=== PATIENT | female | born 2000 | race African-American/Black ===

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

== ENCOUNTER 2020-05-30 21:48 | Emergency (ER) | payer OTHER ==
[~2020-05-30] VITALS: Ht 154.9 cm; Wt 100.0 kg
[2020-05-30] MEDS ORDERED: IV NORMAL SALINE 1,000ML 1,000 ML IV ONE (22:00)
--- NOTE | 2020-05-30 22:00 | PHYS DOC ---
Past History Past Medical History: No Pertinent History, Other Past Surgical History: Other Smoking: Non-smoker Alcohol Use: None Drug Use: None General Adult EDM: Chief Complaint: SORE THROAT HPI: HPI: Patient is a 19 year old female who presents for evaluation of sore throat, shortness of air has been progressing for the past 2 days. Patient has a mild diffuse headache but no significant neck pain. Patient has pain with swallowing but is not complaining of drooling. Patient was tachycardic in triage and is running a fever. Patient is not toxic appearing however. Patient has no known exposure to COVID although she has been to work recently Review of Systems: Review of Systems: Constitutional: has fever but no chills Eyes: Denies change in visual acuity HENT: has nasal congestion and moderate sore throat Respiratory: mild cough and shortness of breath Cardiovascular: has chest pain but no edema GI: Denies abdominal pain, nausea, vomiting, bloody stools or diarrhea : Denies dysuria Musculoskeletal: Denies back pain or joint pain Integument: Denies rash Neurologic: mild diffuse headache but no focal weakness or sensory changes Endocrine: Denies polyuria or polydipsia Lymphatic: Denies swollen glands Psychiatric: Denies depression or anxiety Heart Score: Risk Factors: Risk Factors: DM, Current or recent (<one month) smoker, HTN, HLP, family history of CAD, obesity. Risk Scores: Score 0 - 3: 2.5% MACE over next 6 weeks - Discharge Home Score 4 - 6: 20.3% MACE over next 6 weeks - Admit for Clinical Observation Score 7 - 10: 72.7% MACE over next 6 weeks - Early Invasive Strategies Allergies: Allergies: Allergies Coded Allergies Type Severity Reaction Last Updated Verified No Known Drug Allergies 09/25/15 No Physical Exam: PE: Constitutional: Well developed, well nourished, mild acute distress, non-toxic appearance. [] HENT: Normocephalic, atraumatic, bilateral external ears normal, oropharynx moist, no oral exudates, nose normal, mild bilateral tympanic membrane erythema, bilateral enlarged tonsils with exudate present [] Eyes: PERRL EOMI, conjunctiva normal, no discharge. [] Neck: Normal range of motion, no tenderness, supple, no stridor. [] Cardiovascular:Heart rate tachy regular rhythm, no murmur [] Lungs & Thorax: Bilateral breath sounds clear to auscultation [] Abdomen: Bowel sounds normal, soft, no tenderness, no masses, no pulsatile masses. [] Skin: Warm, dry, no erythema, no rash. [] Back: No tenderness. [] Extremities: No tenderness, no cyanosis, no clubbing, ROM intact, no edema. [] Neurologic: Alert and oriented, normal motor function, normal sensory function, no focal deficits noted. [] Psychologic: Affect normal, judgement normal, mood normal. [] Current Patient Data: Labs: Laboratory Tests Test 05/30/20 22:35 05/30/20 23:00 Group A Streptococcus Rapid Negative White Blood Count 8.2 x10^3/uL Red Blood Count 4.07 x10^6/uL Hemoglobin 12.4 g/dL Hematocrit 36.8 % Mean Corpuscular Volume 91 fL Mean Corpuscular Hemoglobin 31 pg Mean Corpuscular Hemoglobin Concent 34 g/dL Red Cell Distribution Width 11.7 % Platelet Count 303 x10^3/uL Neutrophils (%) (Auto) 68 % Lymphocytes (%) (Auto) 15 % Monocytes (%) (Auto) 17 % Eosinophils (%) (Auto) 0 % Basophils (%) (Auto) 0 % Neutrophils # (Auto) 5.6 x10^3uL Lymphocytes # (Auto) 1.2 x10^3/uL Monocytes # (Auto) 1.4 x10^3/uL Eosinophils # (Auto) 0.0 x10^3/uL Basophils # (Auto) 0.0 x10^3/uL Sodium Level 137 mmol/L Potassium Level 3.6 mmol/L Chloride Level 103 mmol/L Carbon Dioxide Level 28 mmol/L Anion Gap 6 Blood Urea Nitrogen 8 mg/dL Creatinine 0.9 mg/dL Estimated GFR (Cockcroft-Gault) 97.6 BUN/Creatinine Ratio 9 Glucose Level 136 mg/dL Calcium Level 8.6 mg/dL Total Bilirubin 0.5 mg/dL Aspartate Amino Transf (AST/SGOT) 13 U/L Alanine Aminotransferase (ALT/SGPT) 14 U/L Alkaline Phosphatase 70 U/L Total Protein 7.7 g/dL Albumin 3.1 g/dL Albumin/Globulin Ratio 0.7 Serum Test, Qualitative Negative Heterophil Agglutinins Negative Current Medications Medications (Trade) Dose Ordered Sig/Monica Route PRN Reason Start Time Stop Time Status Last Admin Dose Admin Sodium Chloride 1,000 ml @ 1,000 mls/hr 1X ONCE IV 05/30/20 22:00 05/30/20 22:59 DC 05/30/20 23:00 Acetaminophen (Tylenol) 1,000 mg 1X ONCE PO 05/30/20 22:15 05/30/20 22:16 DC 05/30/20 22:40 EKG: EKG: Sinus tachycardia rate 115, leftward axis, otherwise unremarkable EKG, not STEMI read at 2220 [] Radiology/Procedures: Radiology/Procedures: CXR: no acute findings, no obvious infiltrates[] Course & Med Decision Making: Course & Med Decision Making Pertinent Labs and Imaging studies reviewed. (See chart for details) [] Dragon Disclaimer: Dragon Disclaimer: This electronic medical record was generated, in whole or in part, using a voice recognition dictation system. 0100 stable, feeling better at this time. Chest x-ray did not show evidence of pneumonia. Physical exam shows patient has enlarged tonsils with exudates present. White blood cell count was normal. Patient given dose of Solu-Medrol and augmentin She will receive prescription for Keflex and Medrol Dosepak. COVID swab results are pending. It was recommended patient do quarantine until results are known or she is symptom-free which ever is longer. Departure Departure: Impression: Primary Impression: Exudative tonsillitis Additional Impressions: Dyspnea Qualified Codes: R06.00 - Dyspnea, unspecified Person under investigation for COVID-19 Disposition: HOME/RESIDENCE PRIOR TO ADM Condition: STABLE Referrals: CLAUDIA HIGGINS MD (PCP) Patient Instructions: Shortness of Breath, [id number], Tonsillitis Additional Instructions: Drink plenty fluids, rest, take medication as directed. This includes steroids and an antibiotic, return if worsen You have been tested for or diagnosed with COVID-19. It is an infection caused by a new type of coronavirus. COVID-19 will cause cold-like or mild flu symptoms in most. It can cause more severe symptoms like problems breathing in some. There is no treatment for COVID-19. The body will clear the infection over time. Self-care will help to ease discomfort. Steps to Take: Self-Care Rest as needed. Healthy habits may help you feel better. Steps include: Choose healthy foods including fruits and vegetables. Drink water throughout the day. Get plenty of sleep each night. If you smoke, try to quit. It may ease breathing. Avoid alcohol. Keep Others Healthy The virus can spread to others. Droplets are released every time you sneeze or cough. The droplets can get into the mouth, nose, or eyes of people near you and lead to infection. To lower the chances of spreading COVID-19 to others: Stay at home until your doctor has said it is safe to leave. If you tested positive this will mean staying isolated until both of the following are true: At least 7 days have passed since the start of illness. You are free of fever for at least 72 hours without the use of medicine. During this time: - Avoid public areas, events, or transportation. Do not return to work or school until your doctor has said it is safe to do so. - Call ahead if you need to go to a medical center. Let them know you may have COVID-19. It will help them guide you where to go. They may also ask you to wear a facemask when you come to the office. - If you call for emergency medical services, let them know you may have COVID- 19. While at home: - Try to avoid close contact with others. Stay about 6 feet away. - If possible, spend most of your time in a separate room from others. - Use a face mask if you will be in close contact with others such as sharing a room or vehicle. - Have someone wipe down common surfaces in the home. Use household design sales consultant every day on areas like doorknobs, counters, or sinks. - Cough or sneeze into a tissue. Throw the tissue away right after use. If a tissue is not available, cough or sneeze into your elbow. - Wash your hands often. Wash them after sneezing or coughing. Use soap and water and wash for at least 20 seconds. Alcohol based hand house cleaner can be used if soap and water is not available. - Do not prepare food for others. Avoid sharing personal items like forks, spoons, or toothbrushes. - Avoid close contact with pets while you are sick. There is no evidence of the virus passing to pets. This is a safety step until more is known about this virus. Isolation can be frustrating. Social interaction can help. Keep in touch with friends and family through phone and tech options. You can still interact with others in your home, just keep a safe distance of about 6 feet. Follow-up: Your doctors office will check in with you to see if there are any changes in your health. You may be asked to keep track of symptoms to share with them. They will also let you know when you are clear to be in public again. Problems to Look Out For: Contact your doctor if your recovery is not going as you expect. Get emergency care if you have problems such as: - Trouble breathing - Nonstop chest pain or pressure - Changes in awareness, confusion, or problems waking - Lips or face have bluish color - Worsening of symptoms If you think you have an emergency, call for emergency medical services right away. As taken from [facility] Methylprednisolone (MEDROL) 4 Mg Tab.ds.pk 1 PKG PO UD for enlarged tonsils, #1 PKG Prov: LEYLA LINN DO 05/31/20 Amoxicillin/Potassium Clav (AUGMENTIN 500-125 TABLET) 1 Each Tablet 1 TAB PO TID for tonsillitis for 7 Days, #21 TAB 0 Refills Prov: LEYLA LINN DO 05/31/20 Justification of Admission: Justification of Admission: Justification of Admission Dx: N/A COVID-19 Assessment COVID-19 Patient Risks: Age 65 or older: No Sign of co-morbidity: No Exp to person + for COVID: No Exp to PUI: No Travel from affected area: No Lower respiratory symptoms: Yes Fever: Yes Other: No PPE Use: Full PPE with N95 mask or PAPR: Yes LEYLA LINN DO May 30, 2020 22:00
[2020-05-30] MEDS ORDERED: ACETAMINOPHEN 500 MG TABLET PO ONE (22:15)
[2020-05-30 23:35] LABS: BASO % 0 % (0-3); EOS % 0 % (0-3); HEMATOCRIT 36.8 % (36.0-47.0); HEMOGLOBIN 12.4 g/dL (12.0-15.5); LYMPH # 1.2 x10^3/uL (1.0-4.8); LYMPH % 15 % (24-48); MEAN CORPUSCULAR HEMOGLOBIN 31 pg (25-35); MEAN CORPUSCULAR HGB CONC 34 g/dL (31-37); MEAN CORPUSCULAR VOLUME 91 fL (79-100); MONO # 1.4 x10^3/uL (0.0-1.1); MONO % 17 % (0-9); NEUT # 5.6 x10^3uL (1.8-7.7); NEUT % 68 % (31-73); PLATELET COUNT 303 x10^3/uL (140-400); RED BLOOD COUNT 4.07 x10^6/uL (3.50-5.40); RED CELL DISTRIBUTION WIDTH 11.7 % (11.5-14.5); WHITE BLOOD COUNT 8.2 x10^3/uL (4.0-11.0)
[2020-05-30 23:36] LABS: CALCIUM 8.6 mg/dL (8.5-10.1); CREATININE 0.9 mg/dL (0.6-1.0); GFR 97.6; POTASSIUM 3.6 mmol/L (3.5-5.1)
[2020-05-30 23:41] LABS: ALBUMIN 3.1 g/dL (3.4-5.0); ALBUMIN/GLOBULIN RATIO 0.7 (1.0-1.7); TOTAL BILIRUBIN 0.5 mg/dL (0.2-1.0); TOTAL PROTEIN 7.7 g/dL (6.4-8.2)
[2020-05-30 23:43] LABS: PREG TEST PT QUAL NEGATIVE (NEG)
[2020-05-30 23:46] LABS: MONONUCLEOSIS PATIENT NEGATIVE (NEGATIVE)
--- NOTE | 2020-05-31 00:53 | EKG ---
[address] [address] Test Date: 2020-05-30 Test Time: 22:14:02 Pat Name: ROHAN GIORDANO Department: Room: Gender: F Intelligence Agent: : 2000 Requested By: LEYLA LINN Order Number: [id number] Reading MD: Measurements Intervals [place] Rate: 115 P: 59 NM: 150 QRS: 26 QRSD: 70 T: 32 QT: 302 QTc: 419 Interpretive Statements SINUS TACHYCARDIA OTHERWISE NORMAL ECG RI6.02 No previous ECG available for comparison
[2020-05-31 01:10] VITALS: BP 129/61
[2020-05-31] MEDS ORDERED: METH4TAB2 PO (01:19)
[2020-05-31] MEDS ORDERED: AMOX1TAB58 PO (01:19)
[2020-05-31] MEDS ORDERED: IV NORMAL SALINE 50ML 50 ML ONE (01:21)
[2020-05-31] MEDS ORDERED: cefTRIAXone SODIUM 1 GM VIAL ONE (01:22)
[2020-05-31] MEDS ORDERED: methylPREDNISolone SOD SUCC PF 125 MG/2 ML VIAL. IV ONE (01:30)
--- NOTE | 2020-05-31 02:19 | RAD ---
INDICATION: Reason: short of air, fever / Spl. Instructions: / History: COMPARISON: None. FINDINGS: Single view of chest obtained. Cardiac silhouette is mildly prominent but likely exaggerated by portable technique. Mild haziness at the lung bases. No gross osseous destructive lesion. IMPRESSION: * Minimal haziness at the lung bases could be from overlap of structures or atelectasis. Infiltrate would be considered less likely. Electronically signed by: Sonido Levine MD (05/31/2020 2:16 AM) [id number]
--- NOTE | 2020-06-03 10:51 | NUR ---
IP: notified patient of COVID test result.
== END 2020-05-31 02:11 | disposition home or self-care (01) ==
LOC: ER 21:48
DX: J03.90 Acute tonsillitis, unspecified (principal); Z20.828 Contact with and (suspected) exposure to other viral communicable diseases
CPT/HCPCS: 36415; 71045; 80053; 84703; 85025; 86308; 87070; 87880; 93005; 96361; 96365; 96375; 99285; J0696; J2930; J7030; U0003

== ENCOUNTER 2021-02-12 18:41 | Emergency (ER) | payer OTHER ==
[~2021-02-12] VITALS: Ht 154.9 cm; Wt 100.6 kg
[~2021-02-12 18:41] MED LIST: AMOX1TAB58 PO; METH4TAB2 PO
[2021-02-12 19:32] VITALS: BP 149/86
--- NOTE | 2021-02-12 19:49 | PHYS DOC ---
Past History Past Medical History: No Pertinent History, Other (PIETRO HERNANDEZ APRN) Past Surgical History: Other Additional Past Surgical Histo: wisdom teeth (PIETRO HERNANDEZ APRN) Smoking: Non-smoker Alcohol Use: None Drug Use: None (PIETRO HERNANDEZ APRN) General Adult EDM: Chief Complaint: OTHER COMPLAINTS HPI: HPI: Patient is a 20-year-old female who presents with swollen lymph nodes, sore throat. Patient states that symptoms started yesterday. Patient denies a cough, fever. Patient states "I also think I have a yeast infection". Patient reports that she has a white discharge, with fishy odor. Patient had unprotected sex in November. Last menstrual period was December. Denies . Patient reports she has been taking Advil at home for discomfort which has helped. Denies health history. (PIETRO HERNANDEZ APRN) Review of Systems: Review of Systems: Constitutional: Denies fever or chills Eyes: Denies change in visual acuity HENT: Denies nasal congestion, reports sore throat Respiratory: Denies cough or shortness of breath Cardiovascular: Denies chest pain or edema GI: Denies abdominal pain, nausea, vomiting, bloody stools or diarrhea : Denies dysuria Musculoskeletal: Denies back pain or joint pain Integument: Denies rash Neurologic: Denies headache, focal weakness or sensory changes Endocrine: Denies polyuria or polydipsia Lymphatic: Swollen cervical lymph nodes Psychiatric: Denies depression or anxiety Vaginal: Reports white discharge, fishy odor (PIETRO HERNANDEZ APRN) Allergies: Allergies: Allergies Coded Allergies Type Severity Reaction Last Updated Verified No Known Drug Allergies 09/25/15 No (PIETRO HERNANDEZ APRN) Physical Exam: PE: Constitutional: Well developed, well nourished, no acute distress, non-toxic appearance. [] HENT: atraumatic, bilateral external ears normal, oropharynx moist, no oral exudates, Eyes: PERRLA, conjunctiva normal, no discharge. [] Neck: Normal range of motion, tendernesscervical lymph nodes Cardiovascular:Heart rate regular rhythm, no murmur [] Lungs & Thorax: Bilateral breath sounds clear to auscultation [] Abdomen: Bowel sounds normal, soft, no tenderness, no masses, no pulsatile masses. [] Skin: Warm, dry, no erythema, no rash. [] Back: No tenderness, no CVA tenderness. [] Extremities: No tenderness, no cyanosis, no clubbing, ROM intact, no edema. [] Neurologic: Alert and oriented X 3, normal motor function, normal sensory function, no focal deficits noted. [] Psychologic: Affect normal, judgement normal, mood normal. [] (PIETRO HERNANDEZ APRN) EKG: EKG: [] (PIETRO HERNANDEZ APRN) Radiology/Procedures: Radiology/Procedures: [] (PIETRO HERNANDEZ APRN) Heart Score: C/O Chest Pain: No Risk Factors: Risk Factors: DM, Current or recent (<one month) smoker, HTN, HLP, family history of CAD, obesity. Risk Scores: Score 0 - 3: 2.5% MACE over next 6 weeks - Discharge Home Score 4 - 6: 20.3% MACE over next 6 weeks - Admit for Clinical Observation Score 7 - 10: 72.7% MACE over next 6 weeks - Early Invasive Strategies (PIETRO HERNANDEZ APRN) Course & Med Decision Making: Course & Med Decision Making Pertinent Labs and Imaging studies reviewed. (See chart for details) [] Patient is being seen for sore throat, swollen lymph nodes and vaginal discharge. Patient states that she has white discharge, and fishy odor. Patient reports unprotected sex and in November. Patient denies urinary symptoms. Rapid strep was negative. Patient self swabbed for wet prep. Patient care transferred to Dr. Raphael (PIETRO HERNANDEZ APRN) Donny Disclaimer: Donny Disclaimer: This electronic medical record was generated, in whole or in part, using a voice recognition dictation system. (PIETRO HERNANDEZ APRN) Departure Departure: Impression: Primary Impression: Sore throat Disposition: HOME / SELF CARE / HOMELESS Referrals: CLAUDIA HIGGINS MD (PCP) Scripts Metronidazole (METROGEL-VAGINAL) 70 Gm Gel.w.appl 1 APPFUL VG QHS for bv for 5 Days, #70 GM 0 Refills Prov: LUIS LOUISE MD 02/12/21 Attending Signature Attending Signature I have participated in the care of this patient and I have reviewed and agree with all pertinent clinical information above including history, exam, and recommendations. (LUIS LOUISE MD) PIETRO HERNANDEZ APRN Feb 12, 2021 19:49 LUIS LOUISE MD Feb 13, 2021 00:58
[2021-02-12] MEDS ORDERED: METR70GE14 VG (21:27)
== END 2021-02-12 21:34 | disposition home or self-care (01) ==
LOC: ER 18:41
DX: J02.9 Acute pharyngitis, unspecified (principal); R59.9 Enlarged lymph nodes, unspecified
CPT/HCPCS: 87070; 87880; 99283; Q0111

== ENCOUNTER 2021-02-15 13:06 | Emergency (ER) | payer OTHER ==
[~2021-02-15] VITALS: Ht 154.9 cm; Wt 100.6 kg
[~2021-02-15 13:06] MED LIST changes: +METR70GE14 VG
--- NOTE | 2021-02-15 13:35 | PHYS DOC ---
Past History Past Medical History: No Pertinent History, Other Past Surgical History: Other Additional Past Surgical Histo: wisdom teeth Smoking: Non-smoker Alcohol Use: None Drug Use: None General Adult EDM: Chief Complaint: Neck Pain HPI: HPI: Patient is a 20-year-old female who presents with swelling to the right side of her neck. Patient does report right ear pain, right-sided throat pain. Patient was seen here earlier in the week and tested negative for strep. Patient denies fever, cough. Patient states "it is a lot more swollen than when I was here before". Patient is able to manage secretions. Denies shortness of breath. Denies trouble swallowing. Patient denies any mouth sores. Review of Systems: Review of Systems: Constitutional: Denies fever or chills Eyes: Denies change in visual acuity HENT: Denies nasal congestion, reports sore throat Respiratory: Denies cough or shortness of breath Cardiovascular: Denies chest pain or edema GI: Denies abdominal pain, nausea, vomiting, bloody stools or diarrhea : Denies dysuria Musculoskeletal: Denies back pain or joint pain Integument: Denies rash Neurologic: Denies headache, focal weakness or sensory changes Endocrine: Denies polyuria or polydipsia Lymphatic: Reports right-sided, cervical, swollen glands Psychiatric: Denies depression or anxiety Allergies: Allergies: Allergies Coded Allergies Type Severity Reaction Last Updated Verified No Known Drug Allergies 09/25/15 No Physical Exam: PE: Constitutional: Well developed, no acute distress, non-toxic appearance. HENT: Normocephalic, atraumatic, bilateral external ears normal, oropharynx mo ist, no oral exudates Eyes: PERRLA, conjunctiva normal, no discharge. Neck: Normal range of motion, right-sided neck tenderness, swelling. Cardiovascular:Heart rate regular rhythm, no murmur Lungs & Thorax: Bilateral breath sounds clear to auscultation Abdomen: Bowel sounds normal, soft, no tenderness, no masses Skin: Warm, dry, no erythema, no rash. Back: No tenderness, no CVA tenderness. Extremities: No tenderness, no cyanosis, no clubbing, ROM intact, no edema. Neurologic: Alert and oriented X 3, normal motor function, normal sensory function, no focal deficits noted Psychologic: Affect normal, judgement normal, mood normal. EKG: EKG: [] Radiology/Procedures: Radiology/Procedures: []EXAM: CT NECK SOFT TISSUES WITH CONTRAST. HISTORY: Neck swelling. TECHNIQUE: Computed tomography of the neck soft tissues was performed after the intravenous administration of iodinated contrast. One or more of the following individualized dose reduction techniques were utilized for this examination: 1. Automated exposure control. 2. Adjustment of the mA and/or kV according to patient size. 3. Use of iterative reconstruction technique. COMPARISON: None. FINDINGS: Images of the lung apices reveal no acute abnormality. Bone windows reveal no suspicious lesions. The parotid glands and submandibular glands are unremarkable. The thyroid gland reveals no focal lesions. The pharyngeal tonsils are moderately enlarged, narrowing the oropharyngeal airway. There is mild soft tissue swelling in the right submandibular and submental region. There is no drainable soft tissue collection. Cervical lymph nodes are enlarged bilaterally. These measure up to 3.3 x 2.0 cm in the left jugulodigastric station. One right jugulodigastric lymph node measuring 2.1 x 1.8 cm and enhances relatively weakly suggesting early necrosis. Posterior triangle nodes are enlarged to a lesser degree. One prominent left supraclavicular node measures 13 x 6 mm. IMPRESSION: 1. Mild soft tissue swelling within the submental and right submandibular region without a drainable collection. 2. Enlarged bilateral cervical lymph nodes with suggestion of early necrosis on the right. These are most likely reactive. Correlate with other clinical data. There are minimal percutaneous ultrasound guided biopsy if there is persistent concern. Electronically signed by: Jose Chaudhry MD (02/15/2021 2:32 PM) [facility] Heart Score: C/O Chest Pain: No Risk Factors: Risk Factors: DM, Current or recent (<one month) smoker, HTN, HLP, family history of CAD, obesity. Risk Scores: Score 0 - 3: 2.5% MACE over next 6 weeks - Discharge Home Score 4 - 6: 20.3% MACE over next 6 weeks - Admit for Clinical Observation Score 7 - 10: 72.7% MACE over next 6 weeks - Early Invasive Strategies Course & Med Decision Making: Course & Med Decision Making Pertinent Labs and Imaging studies reviewed. (See chart for details) [] 20-year-old female presents with right-sided cervical swelling and tenderness. Patient was seen here earlier in the week for sore throat, swollen lymph nodes. Patient was tested for strep throat, which was negative. Patient is reporting that swelling has gotten worse. Pain in her right ear, right-sided throat. No edema or exudates seen on tonsils. Patient denies fevers or trouble swallowing. Patient is managing her own secretions. Tested patient for mono, which was negative. All other labs are unremarkable. CT of neck shows mild soft tissue swelling. Patient was likely has bacterial pharyngitis. Starting patient on Augmentin and sending home with a Medrol Dosepak. Patient needs to follow-up with her PCP if symptoms persist. Gave patient a referral for ENT for patient to follow-up . Explained to patient to return to emergency room with worsening symptoms or concerns . Patient agrees with this plan. Donny Disclaimer: Donny Disclaimer: This electronic medical record was generated, in whole or in part, using a voice recognition dictation system. Departure Departure: Impression: Primary Impression: Bacterial pharyngitis Disposition: HOME / SELF CARE / HOMELESS Condition: STABLE Referrals: CLAUDIA HIGGINS MD (PCP) Patient Instructions: Viral and Bacterial Pharyngitis, [id number] Additional Instructions: You were seen in the emergency room today for swelling to lymph nodes on your right, right-sided ear pain and throat pain. We tested you for mono, which was negative. All of your other labs were unremarkable. The CT of your neck was negative for acute abnormalities. You most likely have bacterial pharyngitis. I am sending you home with a prescription for Augmentin and also a Medrol Dosepak to help with swelling. You can also take ibuprofen and Tylenol for discomfort. If you have worsening symptoms or concerns please return to the emergency room. EMERGENCY DEPARTMENT GENERAL DISCHARGE INSTRUCTIONS Thank you for coming to [facility] (ED) today and trusting us with you care. We trust that you had a positivie experience in our Emergency Department. If you wish to speak to the department management, you may call the director at [phone]. YOUR FOLLOW UP INSTRUCTIONS ARE FOLLOWS: 1. Do you have a private Doctor? If you do not have a private doctor, please ask for a resource list of physicians or clinics that may be able to assist you with follow up care. 2. The Emergency Physician has interpreted your x-rays. The X-Ray specialist will also review them. If there is a change in the findings, you will be notified in 48 hours when at all possible. 3. A lab test or culture has been done, your results will be reviewed and you will be notified if you need a change in treatment. ADDITIONAL INSTRUCTIONS AND INFORMATION: 1. Your care today has been supervised by a physician who is specially trained in emergency care. Many problems require more than one evaluation for a complete diagnosis and treatment. We recommend that you schedule your follow up appointment as recommended to ensure complete treatment of you illness or injury. If you are unable to obtain follow up care and continue to have a problem, or if your condition worsens, we recommend that you return to the ED. 2. We are not able to safely determine your condition over the phone nor are we able to give sound medical advice over the phone. For these safety reasons, if you call for medical advice we will ask you to come to the ED for further evaluation. 3. If you have any questions regarding these discharge instructions please call the ED at [phone]. SAFETY INFORMATION: In the interest of safety, wellness, and injury prevention; we encourage you to wear your sealbelt, if you smoke; quite smoking, and we encourage family to use a protective helmet for bicycling and other sporting events that present an increased risk for head injury. IF YOUR SYMPTOMS WORSEN OR NEW SYMPTOMS DEVELOP, OR YOU HAVE CONCERNS ABOUT YOUR CONDITION; OR IF YOUR CONDITION WORSENS WHILE YOU ARE WAITING FOR YOUR FOLLOW UP APPOINTMENT; EITHER CONTACT YOUR PRIMARY CARE DOCTOR, THE PHYSICIAN WHOSE NAME AND NUMBER YOU WERE GIVEN, OR RETURN TO THE ED IMMEDIATELY. Scripts Methylprednisolone (MEDROL) 4 Mg Tab.ds.pk 1 PKG PO UD for inflammation for 6 Days, #1 PKG 0 Refills Prov: PIETRO HERNANDEZ APRN 02/15/21 Amoxicillin/Potassium Clav (AUGMENTIN 875-125 TABLET) 1 Each Tablet 1 TAB PO BID for pharangitis for 7 Days, #14 TAB 0 Refills Prov: PIETRO HERNANDEZ APRN 02/15/21 PIETRO HERNANDEZ APRN Feb 15, 2021 13:35
[2021-02-15 13:40] VITALS: BP 13/82
[2021-02-15 13:55] LABS: BASO % 1 % (0-3); EOS # 0.1 x10^3/uL (0.0-0.7); EOS % 1 % (0-3); HEMATOCRIT 39.1 % (36.0-47.0); HEMOGLOBIN 13.3 g/dL (12.0-15.5); LYMPH # 1.6 x10^3/uL (1.0-4.8); LYMPH % 24 % (24-48); MEAN CORPUSCULAR HEMOGLOBIN 29 pg (25-35); MEAN CORPUSCULAR HGB CONC 34 g/dL (31-37); MEAN CORPUSCULAR VOLUME 86 fL (79-100); MONO # 0.8 x10^3/uL (0.0-1.1); MONO % 12 % (0-9); NEUT # 4.1 x10^3uL (1.8-7.7); NEUT % 63 % (31-73); PLATELET COUNT 358 x10^3/uL (140-400); RED BLOOD COUNT 4.55 x10^6/uL (3.50-5.40); RED CELL DISTRIBUTION WIDTH 12.4 % (11.5-14.5); WHITE BLOOD COUNT 6.5 x10^3/uL (4.0-11.0)
[2021-02-15] MEDS ORDERED: IOHEXOL 300 MG/ML 75 ML VIAL. IV ONE (14:00)
[2021-02-15 14:05] LABS: CALCIUM 9.5 mg/dL (8.5-10.1); CREATININE 0.7 mg/dL (0.6-1.0); GFR 129.1; POTASSIUM 4.2 mmol/L (3.5-5.1)
[2021-02-15 14:06] LABS: MONONUCLEOSIS PATIENT NEGATIVE (NEGATIVE)
[2021-02-15 14:18] LABS: ALBUMIN 3.2 g/dL (3.4-5.0); ALBUMIN/GLOBULIN RATIO 0.6 (1.0-1.7); TOTAL BILIRUBIN 0.3 mg/dL (0.2-1.0); TOTAL PROTEIN 8.8 g/dL (6.4-8.2)
--- NOTE | 2021-02-15 14:34 | RAD ---
EXAM: CT NECK SOFT TISSUES WITH CONTRAST. HISTORY: Neck swelling. TECHNIQUE: Computed tomography of the neck soft tissues was performed after the intravenous administr ation of iodinated contrast. One or more of the following individualized dose reduction techniques we re utilized for this examination: 1. Automated exposure control. 2. Adjustment of the mA and/or kV according to patient size. 3. Use of iterative reconstruction technique. COMPARISON: None. FINDINGS: Images of the lung apices reveal no acute abnormality. Bone windows reveal no suspicious le sions. The parotid glands and submandibular glands are unremarkable. The thyroid gland reveals no focal lesi ons. The pharyngeal tonsils are moderately enlarged, narrowing the oropharyngeal airway. There is mild sof t tissue swelling in the right submandibular and submental region. There is no drainable soft tissue collection. Cervical lymph nodes are enlarged bilaterally. These measure up to 3.3 x 2.0 cm in the left jugulodig astric station. One right jugulodigastric lymph node measuring 2.1 x 1.8 cm and enhances relatively w eakly suggesting early necrosis. Posterior triangle nodes are enlarged to a lesser degree. One promin ent left supraclavicular node measures 13 x 6 mm. IMPRESSION: 1. Mild soft tissue swelling within the submental and right submandibular region without a drainable collection. 2. Enlarged bilateral cervical lymph nodes with suggestion of early necrosis on the right. These are most likely reactive. Correlate with other clinical data. There are minimal percutaneous ultrasound g uided biopsy if there is persistent concern. Electronically signed by: Jose Chaudhry MD (02/15/2021 2:32 PM) [facility]
[2021-02-15] MEDS ORDERED: METH4TAB2 PO (14:42)
[2021-02-15] MEDS ORDERED: AMOX1TAB61 PO (14:42)
== END 2021-02-15 15:01 | disposition home or self-care (01) ==
LOC: ER 13:06
DX: J02.8 Acute pharyngitis due to other specified organisms (principal)
CPT/HCPCS: 36415; 70491; 80053; 85025; 86308; 99285; Q9967; 99284

== ENCOUNTER 2021-10-04 17:04 | Emergency (ER) | payer OTHER ==
[~2021-10-04] VITALS: Ht 154.9 cm; Wt 108.5 kg
[~2021-10-04 17:04] MED LIST changes: +AMOX1TAB61 PO
[2021-10-04 18:59] VITALS: BP 136/88
[2021-10-04] MEDS ORDERED: PRED50TA PO (19:12)
[2021-10-04] MEDS ORDERED: AMOX875T PO (19:12)
--- NOTE | 2021-10-04 19:12 | PHYS DOC ---
Past History Past Medical History: No Pertinent History, Other (RAMANAARCHIE MACHINE GREASER) Past Surgical History: Other Additional Past Surgical Histo: wisdom teeth (RAMANAARCHIE Deangelo MACHINE GREASER) Smoking: Non-smoker Alcohol Use: None Drug Use: None (ARCHIE BOLES Deangelo MACHINE GREASER) Adult General Chief Complaint Chief Complaint: SORE THROAT HPI HPI Patient is a 20-year-old female patient with a history of tonsillitis presenting today complaining of sore throat, enlarged tonsils, symptoms began 3 days ago. Patient denies any fever coughing or congestion. (ARCHIE BOLES Deangelo MACHINE GREASER) Review of Systems Review of Systems Constitutional: Denies fever or chills [] Eyes: Denies change in visual acuity, redness, or eye pain [] HENT: Reports sore throat. Reports enlarged tonsils. Denies nasal congestion Respiratory: Denies cough or shortness of breath [] Cardiovascular: No additional information not addressed in HPI [] GI: Denies abdominal pain, nausea, vomiting, bloody stools or diarrhea [] : Denies dysuria or hematuria [] Musculoskeletal: Denies back pain or joint pain [] Integument: Denies rash or skin lesions [] Neurologic: Denies headache, focal weakness or sensory changes [] All other systems were reviewed and found to be within normal limits, except as documented in this note. (ARCHIE BOLES Deangelo MACHINE GREASER) Allergies Allergies Allergies Coded Allergies Type Severity Reaction Last Updated Verified No Known Drug Allergies 09/25/15 No (ARCHIE BOLES Deangelo MACHINE GREASER) Physical Exam Physical Exam Constitutional: Well developed, well nourished, no acute distress, non-toxic appearance. [] HENT: Normocephalic, atraumatic, bilateral external ears normal, oropharynx moist, no oral exudates, nose normal. [] Airway is open, midline uvula, +2 tonsils with moderate erythema and trace exudate on the left. Eyes: PERRLA, EOMI, conjunctiva normal, no discharge. [] Neck: Normal range of motion, no tenderness, supple, no stridor. [] Cardiovascular:Heart rate regular rhythm, no murmur [] Lungs & Thorax: Bilateral breath sounds clear to auscultation [] Abdomen: Bowel sounds normal, soft, no tenderness, no masses, no pulsatile masses. [] Skin: Warm, dry, no erythema, no rash. [] Back: No tenderness, no CVA tenderness. [] Extremities: No tenderness, no cyanosis, no clubbing, ROM intact, no edema. [] Neurologic: Alert and oriented X 3, normal motor function, normal sensory function, no focal deficits noted. [] Psychologic: Affect normal, judgement normal, mood normal. [] (ARCHIE BOLES APRN) Current Patient Data Vital Signs Vital Signs Date Time Temp Pulse Resp B/P (MAP) Pulse Ox O2 Delivery O2 Flow Rate FiO2 10/04/21 18:59 98.6 125 18 136/88 (104) 98 Room Air (ARCHIE BOLES APRN) EKG EKG [] (ARCHIE BOLES APRN) Radiology/Procedures Radiology/Procedures [] (ARCHIE BOLES APRN) Heart Score C/O Chest Pain: N/A Risk Factors: Risk Factors: DM, Current or recent (<one month) smoker, HTN, HLP, family history of CAD, obesity. Risk Scores: Risk Factors: DM, Current or recent (<one month) smoker, HTN, HLP, family history of CAD, obesity. (ARCHIE BOLES APRN) Course & Med Decision Making Course & Med Decision Making Pertinent Labs and Imaging studies reviewed. (See chart for details) This a 20-year-old female patient with a physical exam of tonsillitis. Discharged on amoxicillin and prednisone. Follow-up with ENT and PCP in 1 to 2 weeks (ARCHIE BOLES APRN) Dragon Disclaimer Dragon Disclaimer This electronic medical record was generated, in whole or in part, using a voice recognition dictation system. (ARCHIE BOLES APRN) Attending Co-Sign The patient was seen and interviewed as well as examined at the bedside. The chart was reviewed. The case was discussed. Agree with the plan of care. (CAROLINE PORTILLO DO) Departure Departure: Impression: Primary Impression: Acute tonsillitis Disposition: HOME / SELF CARE / HOMELESS Condition: STABLE Referrals: CLAUDIA HIGGINS MD (PCP) follow up in one week, Please follow up with ENT for reccurent tonsillitis Patient Instructions: Tonsillitis Additional Instructions: You have tonsillitis. We put you on antibiotics, ensure you complete them. Also take the prescribed prednisone until completed. Take Tylenol or Motrin for pain or fever. Use salt water gargles, consider following up with an ENT for recurrent tonsillitis Scripts Prednisone (PREDNISONE) 50 Mg Tablet 1 TAB PO DAILY, #5 TAB Prov: ARCHIE BOLES APRN 10/04/21 Amoxicillin (AMOXICILLIN) 875 Mg Tablet 1 TAB PO BID, #20 TAB Prov: ARCHIE BOLES APRN 10/04/21 Problem Qualifiers Primary Impression: Acute tonsillitis Pharyngitis/tonsillitis etiology: unspecified etiology Qualified Codes: J03.90 - Acute tonsillitis, unspecified ARCHIE BOLES APRN Oct 04, 2021 19:12 CAROLINE PORTILLO DO Oct 05, 2021 14:53
== END 2021-10-04 19:18 | disposition home or self-care (01) ==
LOC: ER 17:04
DX: J03.90 Acute tonsillitis, unspecified (principal)
CPT/HCPCS: 87070; 87880; 99283